=== PATIENT | female | born 1985 | race Caucasian/White ===

== ENCOUNTER 2019-12-23 14:36 | Emergency (ER) | payer MEDICAID ==
[~2019-12-23] VITALS: Ht 167.6 cm; Wt 54.0 kg
[~2019-12-23 14:36] MED LIST: NO HOME MEDS; OMEP-84 PO; PROC-8 PO
[2019-12-23 15:24] LABS: BASOPHILS % (AUTO) 0.6 % (0-1); EOSINOPHILS % (AUTO) 0.5 % (0-6); HEMATOCRIT 38.1 % (35.0-45.0); MEAN CORPUSCULAR HEMOGLOBIN 31.7 PG (27.0-31.0); MEAN CORPUSCULAR HGB CONC 34.2 g/dL (33.0-36.5); MEAN CORPUSCULAR VOLUME 92.5 FL (78-98); MEAN PLATELET VOLUME 7.9 FL (7.4-10.4); MONOCYTES # (AUTO) 0.5 X10'3 (0-0.9); MONOCYTES % (AUTO) 6.6 % (2-12); NEUTROPHILS # (AUTO) 4.5 X10'3 (1.8-7.7); NEUTROPHILS % (AUTO) 64.3 % (42-75); PLATELET COUNT 263 X10'3 (140-440); RED BLOOD COUNT 4.12 X10'6 (4.20-5.60); RED CELL DISTRIBUTION WIDTH 13.8 % (11.5-14.5)
[2019-12-23 15:33] LABS: COLOR,URINE YELLOW (Yellow); GLUCOSE, URINE NEGATIVE (Neg); KETONES,URINE TRACE mg/dl (Neg); LEUKOCYTE ESTERASE ,URINE TRACE (Neg); NITRITES, URINE NEGATIVE (Neg); OCCULT BLOOD,URINE NEGATIVE (Neg); PH,URINE 5.5 (4.8-8.0); PROTEIN,URINE 30 mg/dl (Neg); UROBILINOGEN,URINE 0.2 E.U/dL (0.2-1.0)
[2019-12-23 15:35] LABS: URINE HCG POSITIVE (NEG)
[2019-12-23 15:38] LABS: ANION GAP 11 (8-16); BILIRUBIN,TOTAL 0.8 MG/DL (0.1-1.0); BLOOD UREA NITROGEN 9 MG/DL (7-18); BUN/CREATININE RATIO 13.2 (6.6-38.0); CALCIUM 9.2 MG/DL (8.5-10.1); CHLORIDE 103 MMOL/L (99-107); CREATININE 0.68 MG/DL (0.40-0.90); GLUCOSE 90 MG/DL (70-104); POTASSIUM 3.1 MMOL/L (3.5-5.1); SODIUM 140 MMOL/L (135-145); TOTAL CARBON DIOXIDE 26.1 MMOL/L (24-32); eGFR > 90 ML/MIN
[2019-12-23 15:39] LABS: ALANINE AMINOTRANSFERASE 39 U/L (12-78); ALBUMIN 4.1 G/DL (3.4-5.0); ALBUMIN/GLOBULIN RATIO 1.3 (1.1-1.5); ALKALINE PHOSPHATASE 42 IU/L (46-116); ASPARTATE AMINO TRANSFERASE 19 U/L (10-37); TOTAL PROTEIN 7.2 G/DL (6.4-8.2); UA COLLECTION TYPE CLN CATCH MIDSTREAM
[2019-12-23 15:40] LABS: CLARITY,URINE SLIGHTLY CLOUDY (Clear)
[2019-12-23 15:41] LABS: BACTERIA,URINE 1+ /HPF (Neg); MUCUS STRANDS MANY /LPF (Neg); RBC,URINE NONE SEEN /HPF (0-2); SQUAMOUS EPITHELIAL CELL,UR FEW /LPF (FEW)
[2019-12-23 15:45] LABS: BETA HCG,QUANTITATIVE 495 mIU/ml
[2019-12-23] MEDS ORDERED: CEPH250T PO (17:13)
[2019-12-23 17:21] VITALS: BP 107/83
== END 2019-12-23 17:22 | disposition home or self-care (01) ==
LOC: ER 14:37
DX: O26.891 Other specified pregnancy related conditions, first trimester (principal); F12.90 Cannabis use, unspecified, uncomplicated; F17.200 Nicotine dependence, unspecified, uncomplicated; O23.41 Unspecified infection of urinary tract in pregnancy, first trimester; Z72.89 Other problems related to lifestyle; Z98.890 Other specified postprocedural states; Z79.899 Other long term (current) drug therapy; Z3A.01 Less than 8 weeks gestation of pregnancy
CPT/HCPCS: 36415; 76802; 80053; 81001; 81025; 84702; 85025; 87088; 93976; 99284

== ENCOUNTER 2019-12-25 18:15 | Emergency (ER) | payer MEDICAID ==
[~2019-12-25] VITALS: Ht 167.6 cm; Wt 54.0 kg
[~2019-12-25 18:15] MED LIST changes: +CEPH250T PO
[2019-12-25 18:26] VITALS: BP 95/67
[2019-12-25 18:50] LABS: BASOPHILS % (AUTO) 0.6 % (0-1); EOSINOPHILS % (AUTO) 0.5 % (0-6); HEMATOCRIT 38.8 % (35.0-45.0); HEMOGLOBIN 13.2 g/dl (12.0-16.0); LYMPHOCYTES # (AUTO) 2.3 X10'3 (1.1-4.8); LYMPHOCYTES % (AUTO) 34.1 % (21-51); MEAN CORPUSCULAR HEMOGLOBIN 31.6 PG (27.0-31.0); MEAN CORPUSCULAR HGB CONC 33.9 g/dL (33.0-36.5); MEAN PLATELET VOLUME 7.8 FL (7.4-10.4); MONOCYTES # (AUTO) 0.5 X10'3 (0-0.9); MONOCYTES % (AUTO) 7.7 % (2-12); NEUTROPHILS # (AUTO) 3.8 X10'3 (1.8-7.7); NEUTROPHILS % (AUTO) 57.1 % (42-75); PLATELET COUNT 295 X10'3 (140-440); RED BLOOD COUNT 4.18 X10'6 (4.20-5.60); RED CELL DISTRIBUTION WIDTH 13.9 % (11.5-14.5); WHITE BLOOD COUNT 6.7 X10'3 (4.5-11.0)
[2019-12-25 18:59] LABS: ALANINE AMINOTRANSFERASE 26 U/L (12-78); ALBUMIN 4.3 G/DL (3.4-5.0); ALBUMIN/GLOBULIN RATIO 1.3 (1.1-1.5); ALKALINE PHOSPHATASE 50 IU/L (46-116); ANION GAP 7 (8-16); ASPARTATE AMINO TRANSFERASE 15 U/L (10-37); BILIRUBIN,TOTAL 0.5 MG/DL (0.1-1.0); BLOOD UREA NITROGEN 11 MG/DL (7-18); BUN/CREATININE RATIO 13.6 (6.6-38.0); CALCIUM 9.4 MG/DL (8.5-10.1); CHLORIDE 105 MMOL/L (99-107); CREATININE 0.81 MG/DL (0.40-0.90); GLUCOSE 84 MG/DL (70-104); SODIUM 140 MMOL/L (135-145); TOTAL CARBON DIOXIDE 27.9 MMOL/L (24-32); TOTAL PROTEIN 7.5 G/DL (6.4-8.2); eGFR 80 ML/MIN
[2019-12-25] MEDS ORDERED: potassium Cl 20 mEq SR tablet PO STA (19:19)
[2019-12-25 19:21] LABS: BETA HCG,QUANTITATIVE 93 mIU/ml
== END 2019-12-25 19:47 | disposition home or self-care (01) ==
LOC: ER 18:16
DX: O02.1 Missed abortion (principal); E87.6 Hypokalemia; N93.9 Abnormal uterine and vaginal bleeding, unspecified; F12.90 Cannabis use, unspecified, uncomplicated; Z86.69 Personal history of other diseases of the nervous system and sense organs; Z98.890 Other specified postprocedural states; Z72.89 Other problems related to lifestyle; Z79.2 Long term (current) use of antibiotics; Z79.899 Other long term (current) drug therapy
CPT/HCPCS: 36415; 80053; 84702; 85025; 99283; 99284

== ENCOUNTER 2025-01-17 15:33 | Emergency (ER) | payer MEDICAID, OTHER ==
[~2025-01-17] VITALS: Ht 167.6 cm; Wt 53.6 kg
[~2025-01-17 15:33] MED LIST changes: -CEPH250T PO
[2025-01-17 15:37] VITALS: BP 103/65; PULSE 75; TEMP 98.3; O2SAT 98
--- NOTE | 2025-01-17 15:44 | Physician Documentation ---
History of Present Illness ~ Chief Complaint: Flank Pain Stated Complaint: FLANK PAIN Time Seen by MD: 16:50 Primary Medical Doctor: NO MD Source: patient Mode of Arrival: POV Exam Limitations: no limitations HPI 39-year-old female who is here with suprapubic discomfort and pain with urination which has been ongoing for about five days. Patient denies fever, chills, nausea or vomiting. Patient denies blood in urine. Patient denies vaginal discharge or odor. Patient states that she also has left flank pain but the flank pain is related to when she bends over when she gets in and out of her car she can bring on the flank pain. Pain is very much related to position. 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 Medication Reconciliation Allergies: Coded Allergies: No Known Allergies (Unverified , 01/17/25) Scheduled Fluconazole (Fluconazole), 1 TAB PO ONCE Omeprazole* (Prilosec*), 20 MG PO DAILY Prochlorperazine Maleate (Compazine), 1 TAB PO Q8H Sulfamethoxazole/Trimethoprim (Bactrim Ds Tablet), 1 TAB PO Q12H Miscellaneous Medications Home Med List (No Home Medications), (Reported) Past Medical History Past Medical History: Seizures Past Surgical History: orthopedic surgeries Alcohol Use: Occasionally Drug Use: marijuana Lives In: Home Review of Systems All Other Systems at this time: Reviewed and Negative Physical Exam Vital Signs: Temperature: 98.3, Source: Oral, Heart Rate: 75, Respiratory Rate: 18, BP: 103/65, Pulse Oximetry: 98, Weight: 53.600 Oxygen Flow Rate: 0 Physical Exam General Appearance: Alert, WD/WN. NAD. HEENT: NCAT, PERRL, EOMI. Neck: Supple, trachea midline. Cardiovascular: RRR. No m/r/g. Lungs: CTAB. Breathing unlabored Extremities: Normal inspection. No edema. Abdomen: Tenderness over suprapubic area no guarding or distention. Back: No CVA tenderness. Spine: Tenderness over left paraspinal muscles of lumbar spine, no midline tenderness. Negative straight leg raise. Skin: Warm/dry, normal color Neurological: Alert and oriented x4, normal gait. Psychiatric: Affect congruent with mood. Progress Results/Orders Results/Orders Vital Signs 01/17/25 01/17/25 15:37 16:43 Temp 98.3 Pulse 75 Resp 18 18 B/P (MAP) 103/65 Pulse Ox 98 O2 Flow Rate 0 Laboratory Tests Test 01/17/25 15:41 01/17/25 15:58 Urine Specimen Description Cln catch midstream Urine Color Yellow Urine Clarity Slightly cloudy Urine pH 5.5 Urine Specific Spearman >=1.030 Urine Protein 30 H Urine Glucose (UA) Negative Urine Ketones Negative Urine Occult Blood Large H Urine Nitrite Negative Urine Bilirubin Negative Urine Urobilinogen 0.2 Urine Leukocyte Esterase Small H Urine RBC 50-100 Urine WBC Tntc H Urine WBC Clumps Moderate Urine Squamous Epithelial Cells Few Urine Transitional Epithelial Cells Few Urine Bacteria 2+ Urine Mucus Few Urine Culture Indicated Indicated Volume Urine Centrifuged 10 ml Urine HCG, Qualitative Negative Urine Comment White Blood Count 9.3 Red Blood Count 4.70 Hemoglobin 13.7 Hematocrit 41.1 Mean Corpuscular Volume 87.4 Mean Corpuscular Hemoglobin 29.1 Mean Corpuscular Hemoglobin Concent 33.3 Red Cell Distribution Width 14.1 Platelet Count 255 Mean Platelet Volume 8.7 Neutrophils (%) (Auto) 73.8 Lymphocytes (%) (Auto) 16.9 L Monocytes (%) (Auto) 5.9 Eosinophils (%) (Auto) 2.9 Basophils (%) (Auto) 0.5 Neutrophils # (Auto) 6.8 Lymphocytes # (Auto) 1.6 Monocytes # (Auto) 0.6 Eosinophils # (Auto) 0.3 Basophils # (Auto) 0.0 CBC Comment Sodium Level 143 Potassium Level 4.3 Chloride Level 109 H Carbon Dioxide Level 29.7 Anion Gap 4 L Blood Urea Nitrogen 13 Creatinine 0.80 Estimated GFR/1.73 m2 79 BUN/Creatinine Ratio 16.3 Glucose Level 99 Calcium Level 8.6 Total Bilirubin 0.3 Aspartate Amino Transf (AST/SGOT) 15 Alanine Aminotransferase (ALT/SGPT) 20 Alkaline Phosphatase 58 Total Protein 7.4 Albumin 4.0 Globulin 3.4 Albumin/Globulin Ratio 1.2 Lipase 49 Chemistry Comments Microbiology Date/Time Source Procedure Growth Status 01/17/25 16:12 Urine Clean Catch Midstream Urine Culture - Preliminary Gram Negative Murali Resulted Medical Decision Making Additional information obtaine: N/A Findings na Diff Dx GI Bleed:Consideration: Unlikely: Other Diff Dx Pain:Considerations: Include: AAA, -Complete, - Incomplete, -Inevitable, -Missed, -Threatened, Abruptio placentae, Angina/VT, Aortic dissection, Appendicitis, Bowel obstruction, Cholangitis, Cholecystitis, Cholelithasis, Constipation, Diverticular disease, Dysmenorrhea, Ectopic , Esophageal rupture, Esophagitis, Gastritis/PUD, Gastroenteritis, GI hemorrhage, Hernia, Hepatitis, Inflammatory BD, Ischemic bowel, Mass, Ovarian cyst/torsion, Pancreatitis, PID, Porphyria, Trauma, intr aabdominal, Urinary obstruction, Urinary tract infection, Urolithiasis, Other Diff Dx N/V/D:Considerations: Unlikely: Other Diff Dx Rectal:Considerations: Unlikely: Other Additional Comments Patient has no evidence for pyelonephritis she is afebrile, white count normal, her flank pain is more consistent with musculoskeletal etiology. Departure Time of Disposition: 09:47 Disposition: HOME / SELF CARE / HOMELESS Impression: Primary Impression: Acute urinary tract infection Additional Impression: Low back pain Qualified Codes: M54.50 - Low back pain, unspecified Condition: Stable Discharge Instructions: Urinary Tract Infection, Adult, [id number] Additional Instructions: If back pain continues follow up with primary care provider If pain at your suprapubic area and pain with urination persist despite antibiotics return to the emergency room If any other urgent or emergent concerns please return for re-evaluation. Patient states that when she takes antibiotics usually gets a yeast infection which is why I sent a prescription for fluconazole Referrals: NO PRIMARY CARE PROVIDER (PCP) Prescriptions Fluconazole (Fluconazole) 150 Mg Tablet 1 TAB PO ONCE for 7 Days, #2 TAB 1po qd now and again in 7days. (disregard above instructions and follow these instrutions) Prov: ANILA HYMAN 01/17/25 Sulfamethoxazole/Trimethoprim (Bactrim Ds Tablet) 800 Mg-160 Mg Tablet 1 TAB PO Q12H for 5 Days, #10 TAB Prov: ANILA HYMAN 01/17/25 Education Educated: Patient Educated regarding: diagnosis, treatment, need for follow up Signature Scribe Signature: [email or web address] Attestation: CHERYLE WuP Jan 17, 2025 15:44 ANILA HYMNA Jan 17, 2025 17:25
[2025-01-17 16:05] LABS: LEUKOCYTE ESTERASE ,URINE SMALL (Neg); NITRITES, URINE NEGATIVE (Neg); OCCULT BLOOD,URINE LARGE (Neg)
[2025-01-17 16:06] LABS: UA COLLECTION TYPE CLN CATCH MIDSTREAM
[2025-01-17 16:07] LABS: MEAN PLATELET VOLUME 8.7 FL (7.4-10.4); RED CELL DISTRIBUTION WIDTH 14.1 % (11.5-14.5)
[2025-01-17 16:11] LABS: SQUAMOUS EPITHELIAL CELL,UR FEW /LPF (FEW)
[2025-01-17 16:12] LABS: MUCUS STRANDS FEW /LPF (Neg); WBC CLUMPS,URINE MODERATE /HPF (NEGATIVE)
[2025-01-17 16:15] LABS: URINE HCG NEGATIVE (NEG)
[2025-01-17 16:27] LABS: CREATININE 0.80 MG/DL (0.40-0.90); TOTAL CARBON DIOXIDE 29.7 MMOL/L (24-32); eCRCL 79 ML/MIN; eGFR 79 ML/MIN
[2025-01-17 16:43] VITALS: RESP 18
[2025-01-17] MEDS ORDERED: SULF1TAB49 PO (17:25)
[2025-01-17] MEDS ORDERED: FLUC150T46 PO (17:25)
== END 2025-01-17 17:29 | disposition home or self-care (01) ==
LOC: ER 15:34
DX: N39.0 Urinary tract infection, site not specified (principal); M54.50 Low back pain, unspecified; F12.90 Cannabis use, unspecified, uncomplicated; Z79.899 Other long term (current) drug therapy; Z72.89 Other problems related to lifestyle; Z98.890 Other specified postprocedural states
CPT/HCPCS: 36415; 80053; 81001; 81025; 83690; 85025; 87077; 87088; 87186; 99283